=== PATIENT | female | born 1985 | race Caucasian/White ===

== ENCOUNTER 2017-12-20 11:10 | Emergency (ER) | payer SELFPAY ==
[2017-12-20] MEDS ORDERED: CYCLOBENZAPRINE 10 MG TAB ONE (11:49)
--- NOTE | 2017-12-20 12:22 | EDPHYS ---
Physician Documentation [facility] Name: Jessica Arnold Age: 32 yrs Sex: Female : 1985 Arrival Date: 12/20/2017 Time: 11:15 Bed 13 Private MD: None, None ED Physician Gavin Simpson HPI: 12/20 11:37 This 32 yrs old Female presents to ER via Wheelchair with complaints of Hip kav Pain. 11:38 The patient presents with pain that is acute, with no known mechanism of injury, and kav spasm, tightness. The symptoms are located in the low back, right low back. The pain does not radiate. The problem was sustained from unknown cause. Onset: The symptoms/episode began/occurred acutely, 1 day(s) ago. Modifying factors: The patient symptoms are alleviated by heat application, the patient symptoms are aggravated by movement. Associated signs and symptoms: The patient has no apparent associated signs or symptoms, Pertinent negatives: nausea, numbness, tingling, weakness. Severity of symptoms: At their worst the symptoms were moderate, just prior to arrival, in the emergency department the symptoms are unchanged. The patient has experienced a previous episode, approximately 1 years ago. The patient has experienced a previous episode. The patient has not recently seen a physician. 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 - Social history:: Smoking status: Patient/guardian denies using tobacco. - Ebola Screening: : Patient negative for fever greater than or equal to 101.5 degrees Fahrenheit, and additional compatible Ebola Virus Disease symptoms Patient denies exposure to infectious person Patient denies travel to an Ebola-affected area in the 21 days before illness onset No symptoms or risks identified at this time. - Family history:: not pertinent. - Hospitalizations: : No recent hospitalization is reported. - History obtained from: mother. ROS: 11:40 Constitutional: Negative for fever, chills, and weight loss, Eyes: Negative for injury, kav pain, redness, and discharge, ENT: Negative for injury, pain, and discharge, Neck: Negative for injury, pain, and swelling, Cardiovascular: Negative for chest pain, palpitations, and edema, Respiratory: Negative for shortness of breath, cough, wheezing, and pleuritic chest pain, Abdomen/GI: Negative for abdominal pain, nausea, vomiting, diarrhea, and constipation, : Negative for injury, bleeding, discharge, and swelling, MS/Extremity: Negative for injury and deformity, Skin: Negative for injury, rash, and discoloration, Neuro: Negative for headache, weakness, numbness, tingling, and seizure, Psych: Negative for depression, anxiety, suicide ideation, homicidal ideation, and hallucinations, Allergy/Immunology: Negative for hives, rash, and allergies, Endocrine: Negative for neck swelling, polydipsia, polyuria, polyphagia, and marked weight changes, Hematologic/Lymphatic: Negative for swollen nodes, abnormal bleeding, and unusual bruising. 11:40 Back: Positive for pain with movement, of the right low back. Exam: 11:40 Constitutional: This is a well developed, well nourished patient who is awake, alert, kav and in no acute distress. Head/Face: Normocephalic, atraumatic. Eyes: Pupils equal round and reactive to light, extra-ocular motions intact. Lids and lashes normal. Conjunctiva and sclera are non-icteric and not injected. Cornea within normal limits. Periorbital areas with no swelling, redness, or edema. ENT: Nares patent. No nasal discharge, no septal abnormalities noted. Tympanic membranes are normal and external auditory canals are clear. Oropharynx with no redness, swelling, or masses, exudates, or evidence of obstruction, uvula midline. Mucous membranes moist. Neck: Trachea midline, no thyromegaly or masses palpated, and no cervical lymphadenopathy. Supple, full range of motion without nuchal rigidity, or vertebral point tenderness. No Meningismus. Chest/axilla: Normal chest wall appearance and motion. Nontender with no deformity. No lesions are appreciated. Cardiovascular: Regular rate and rhythm with a normal S1 and S2. No gallops, murmurs, or rubs. Normal PMI, no JVD. No pulse deficits. Respiratory: Lungs have equal breath sounds bilaterally, clear to auscultation and percussion. No rales, rhonchi or wheezes noted. No increased work of breathing, no retractions or nasal flaring. Abdomen/GI: Soft, non-tender, with normal bowel sounds. No distension or tympany. No guarding or rebound. No evidence of tenderness throughout. Skin: Warm, dry with normal turgor. Normal color with no rashes, no lesions, and no evidence of cellulitis. MS/ Extremity: Pulses equal, no cyanosis. Neurovascular intact. Full, normal range of motion. Neuro: Awake and alert, GCS 15, oriented to person, place, time, and situation. Cranial nerves II-XII grossly intact. Motor strength 5/5 in all extremities. Sensory grossly intact. Cerebellar exam normal. Normal gait. Psych: Awake, alert, with orientation to person, place and time. Behavior, mood, and affect are within normal limits. 11:40 Back: pain, that is moderate, of the right low back, ROM is normal, normal spinal alignment noted, CVA tenderness, is absent, muscle spasm, is appreciated in the right low back, Straight leg raises: of both lower extremities does not illicit pain. Vital Signs: 11:20 BP 125 / 74; Pulse 93; Resp 18; Temp 98.3; Pulse Ox 100% on R/A; Weight 56.7 kg; Height aj 5 ft. 1 in. (154.94 cm); 12:27 BP 116 / 68; Pulse 81; Resp 14; Temp 98.5; Pulse Ox 99% on R/A; Pain 5/10; ch 11:20 Body Mass Index 23.62 (56.70 kg, 154.94 cm) MDM: 11:24 Medical screening is not applicable. ka 11:40 Data reviewed: vital signs, nurses notes. [facility] 12/20 12:17 Order name: Urine Dipstick--Ancillary (enter results) 12/20 12:17 Order name: Urine --Ancillary (enter results) 12/20 11:37 Order name: Urine Dipstick-Ancillary (obtain specimen); Complete Time: 12:27 [facility] 12/20 12:17 Order name: Urine Culture 12/20 12:17 Order name: Urine Microscopic Only eb Administered Medications: 12:10 Drug: Cyclobenzaprine 10 mg Route: PO; ch 12:27 Follow up: Response: No adverse reaction ch Disposition: 17:24 Co-signature as Attending Physician, Gavin Simpson MD. rn Disposition: 12/20/17 12:22 Discharged to Home. Impression: Muscle spasm of back, Urinary tract infection, site not specified. - Condition is Stable. - Discharge Instructions: Urinary Tract Infection, Adult, Koef-bf-Khev, Muscle Cramps and Spasms, Vqoz-lh-Qsiu, Antibiotic Medicine, Zuom-sn-Grlq, Back Exercises, Xpql-in-Tsfq, Heat Therapy, Oprf-sz-Guqb. - Prescriptions for Ibuprofen 800 mg Oral Tablet - take 1 tablet by ORAL route every 8 hours As needed take with food; 30 tablet. Cyclobenzaprine 10 mg Oral Tablet - take 1 tablet by ORAL route every 8 hours As needed; 30 tablet. Cipro 500 mg Oral Tablet - take 1 tablet by ORAL route every 12 hours for 7 days; 14 tablet. - Medication Reconciliation Form, Thank You Letter, Antibiotic Education, Prescription Opioid Use form. - Follow up: Private Physician; When: 5 - 6 days; Reason: If symptoms return, Recheck today's complaints, Continuance of care, Re-evaluation by your physician. - Problem is new. - Symptoms have improved. Signatures: Dispatcher [employer] EDMS Laura Pond RN RN ch Myers, Amanda, RN RN aj Vern, Katherine, FLOOR PERSON FLOOR PERSONGavin Baez MD MD draw furnace tender: (The following items were deleted from the chart) 12:33 12:22 12/20/2017 12:22 Discharged to Home. Impression: Muscle spasm of back; Urinary ch tract infection, site not specified. Condition is Stable. Discharge Instructions: Muscle Cramps and Spasms, Qrsj-ec-Doxr, Back Exercises, Ndra-wq-Phrr, Heat Therapy, Soyz-rg-Xvgd, Urinary Tract Infection, Adult, Fkdc-wz-Tsnu, Antibiotic Medicine, Jwdp-wl-Axqx. Prescriptions for Ibuprofen 800 mg Oral Tablet - take 1 tablet by ORAL route every 8 hours As needed take with food; 30 tablet, Cyclobenzaprine 10 mg Oral Tablet - take 1 tablet by ORAL route every 8 hours As needed; 30 tablet, Cipro 500 mg Oral Tablet - take 1 tablet by ORAL route every 12 hours for 7 days; 14 tablet. and Forms are Medication Reconciliation Form, Thank You Letter, Antibiotic Education, Prescription Opioid Use. Follow up: Private Physician; When: 5 - 6 days; Reason: If symptoms return, Recheck today's complaints, Continuance of care, Re-evaluation by your physician. Problem is new. Symptoms have improved. yoselin
--- NOTE | 2017-12-20 12:22 | ER ---
Nurse's Notes [facility] Name: Jessica Arnodl Age: 32 yrs Sex: Female : 1985 Arrival Date: 12/20/2017 Time: 11:15 Bed 13 Private MD: None, None Diagnosis: Muscle spasm of back;Urinary tract infection, site not specified Presentation: 12/20 11:18 Presenting complaint: Patient states: Low back pain for 2 days that is worse when aj moving from sitting to standing position. Reports pain shoots down both legs but is worse on left side. Transition of care: patient was not received from another setting of care. Onset of symptoms was December 18, 2017. Risk Assessment: Do you want to hurt yourself or someone else? Patient reports no desire to harm self or others. Initial Sepsis Screen: Does the patient meet any 2 criteria? No. Patient's initial sepsis screen is negative. Does the patient have a suspected source of infection? No. Patient's initial sepsis screen is negative. Care prior to arrival: None. 11:18 Method Of Arrival: Wheelchair aj 11:18 Acuity: PREM 4 aj Triage Assessment: 11:20 General: Appears in no apparent distress. comfortable, Behavior is calm, cooperative, aj appropriate for age. Pain: Complains of pain in low back area, buttocks, right leg and left leg. Neuro: Level of Consciousness is awake, alert, obeys commands, Oriented to person, place, time, situation, Appropriate for age. Respiratory: Airway is patent Respiratory effort is even, unlabored, Respiratory pattern is regular, symmetrical. Derm: Skin is intact, is healthy with good turgor, Skin is pink, warm \T\ dry. normal. Musculoskeletal: Reports pain in low back area, buttocks, right leg and left leg. 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 - Social history:: Smoking status: Patient/guardian denies using tobacco. - Ebola Screening: : Patient negative for fever greater than or equal to 101.5 degrees Fahrenheit, and additional compatible Ebola Virus Disease symptoms Patient denies exposure to infectious person Patient denies travel to an Ebola-affected area in the 21 days before illness onset No symptoms or risks identified at this time. - Family history:: not pertinent. - Hospitalizations: : No recent hospitalization is reported. - History obtained from: mother. Screenin:27 Abuse screen: Denies threats or abuse. Denies injuries from another. Nutritional ch screening: No deficits noted. Tuberculosis screening: No symptoms or risk factors identified. Fall Risk None identified. Assessment: 12:27 General: Appears in no apparent distress. comfortable, Behavior is calm, cooperative, ch appropriate for age. Pain: Complains of pain in right low back and left leg and right leg and buttocks and low back area Pain currently is 5 out of 10 on a pain scale. Neuro: Level of Consciousness is awake, alert, obeys commands, Oriented to person, place, time, situation. Respiratory: Airway is patent Respiratory effort is even, unlabored. EENT:. Derm: Skin is Skin is pink, warm \T\ dry. Vital Signs: 11:20 BP 125 / 74; Pulse 93; Resp 18; Temp 98.3; Pulse Ox 100% on R/A; Weight 56.7 kg; Height aj 5 ft. 1 in. (154.94 cm); 12:27 BP 116 / 68; Pulse 81; Resp 14; Temp 98.5; Pulse Ox 99% on R/A; Pain 5/10; ch 11:20 Body Mass Index 23.62 (56.70 kg, 154.94 cm) ED Course: 11:15 Patient arrived in ED. mr 11:15 None, None is Private Physician. mr 11:19 Triage completed. aj 11:20 Arm band placed on left wrist. Patient placed in an exam room. aj 11:24 Deborah Grant FNP is PHCP. kav 11:24 Gavin Simpson MD is Attending Physician. kav 11:27 Laura Pond, DONOVAN is Primary Nurse. ch 12:27 No apparent distress. Resting quietly. ch 12:27 Patient has correct armband on for positive identification. Placed in gown. Bed in low ch position. Call light in reach. Side rails up X 1. Adult w/ patient. Warm blanket given. 12:27 Urine Microscopic Only Sent. ch 12:27 Urine Culture Sent. 12:27 No provider procedures requiring assistance completed. Patient did not have IV access during this emergency room visit. Administered Medications: 12:10 Drug: Cyclobenzaprine 10 mg Route: PO; 12:27 Follow up: Response: No adverse reaction Outcome: 12:22 Discharge ordered by . yoselin 12:32 Discharged to home ambulatory, with family. 12:32 Condition: stable 12:32 Discharge instructions given to patient, family, Instructed on discharge instructions, follow up and referral plans. medication usage, Demonstrated understanding of instructions, follow-up care, medications, Prescriptions given X 3. 12:33 Patient left the ED. Signatures: Laura Pond RN RN ch Myers, Amanda, RN RN aj Vern, Katherine, Patience Hope mr
[2017-12-20 12:52] LABS: Urine Bacteria <20 /HPF (<20); Urine Culture Reflex Order NOT NEEDED; Urine RBC <5 /HPF (NONE SEEN)
[2017-12-20 14:53] LABS: Urine Blood 2+ (NEG); Urine Glucose NEGATIVE (NEG); Urine Protein NEGATIVE (NEG)
== END 2017-12-20 12:33 | disposition home or self-care (01) ==
LOC: ER 11:10
DX: N39.0 Urinary tract infection, site not specified (principal); G80.9 Cerebral palsy, unspecified
CPT/HCPCS: 81003; 81015; 81025; 87086; 87088; 99283